=== PATIENT | male | born 1925 | race Caucasian/White ===

== ENCOUNTER 2016-12-16 09:45 | Emergency (ER) | payer MEDICARE ==
[~2016-12-16] VITALS: Ht 170.2 cm; Wt 78.0 kg
[~2016-12-16 09:45] MED LIST: AMOXICILLIN/CL875 MG PO; ANTIVERT PO; ASPIRIN LOW81 M1 PO; AUGMENTIN875TAB PO; BABY ASPIRIN81 MG PO; BACTRIM DS1 TAB PO; BL ADULT ASA81 MG OR; CORDARONE/200 MG/TAB PO; FISH OIL1000 MG PO; FUROSEMIDE40 MG PO; K-DUR/KLOR-CON20 MEQ PO; LEVOTHYROXIN50 MCG PO; LEVOTHYROXIN75 MC1 PO; LORTAB/VICOD5 MG/TAB PO; MACRODANTIN100 MG PO; MEDDOSEPAK PO; METOPROL TAR25 M1 PO; NAPROSYN500 MG PO; NAPROXEN500 MG PO; NO MEDS; PRAVASTATIN SOD20 MG PO; PRAVASTATIN40 MG PO; UNABLE TO RECONCILE; ZOFRAN ODT4 MG PO
[2016-12-16] MEDS ORDERED: AUGMENTIN500TAB PO (10:09)
[2016-12-16] MEDS ORDERED: PRAVASTATIN SOD20 MG PO (10:12)
[2016-12-16] MEDS ORDERED: ADLT ASA LOW81 MG PO (10:12)
[2016-12-16] MEDS ORDERED: LEVOTHYROXIN75 MC1 PO (10:12)
[2016-12-16 10:40] VITALS: BP 120/66
== END 2016-12-16 10:40 | disposition home or self-care (01) ==
LOC: ED 09:45
DX: S61.256A Open bite of right little finger without damage to nail, initial encounter (principal); E03.9 Hypothyroidism, unspecified; E78.00 Pure hypercholesterolemia, unspecified; I25.2 Old myocardial infarction; W54.0XXA Bitten by dog, initial encounter; Z95.1 Presence of aortocoronary bypass graft